=== PATIENT | male | born 1985 | race Caucasian/White ===

== ENCOUNTER 2017-06-19 15:10 | Emergency (ER) | payer OTHER ==
[~2017-06-19] VITALS: Ht 175.3 cm; Wt 90.7 kg
[~2017-06-19 15:10] MED LIST: AMOX500T2 PO; ONDA-42 SL
[2017-06-19] MEDS ORDERED: fentaNYL INJECTION 100 MCG/2 ML AMP IVP ONE (15:45)
--- NOTE | 2017-06-19 15:48 | ED Fall/Injury ---
General Chief Complaint: Trauma-Non Activation Stated Complaint: LOWER BACK/NECK PAIN Nursing Triage Note: PT FELL APPROX 20 FT OUT OF A LOOSE BUCKET ON A TRUCK YESTERDAY WHILE AT WORK FOR [employer]. UNKNOWN LOC. REPORTS PAIN MUCH WORSE TODAY IN RIGHT LOWER BACK. ALSO C/O LEFT HIP PAIN, RIGHT HEAD PAIN, ET LOWER NECK PAIN. CCOLLAR APPLIED. 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 He was off center so he stepped to the edge of the bucket which caused the bucket to fall from the left landing on the ground. This did not land on him however. Distance of the fall was 20 feet. He landed on his back and rolled into a brick wall on his right side. He did not lose consciousness and had minimal pain yesterday. However, today the pain is much worse to the right side of the thoracic spine, right side of the low back and minor right abdominal pain. Location Injury Occurred: [facility] Occurred: just prior to arrival Severity: moderate Injuries/Pain Location: back Associated Symptoms (Fall): Abdominal Pain, No Headache, Neck Pain Allergies and Home Medications Allergies Coded Allergies: No Known Drug Allergies (Unverified , 02/05/15) Home Medications Amoxicillin Trihydrate 500 Mg Tablet, 500 MG PO TID, (Reported) Ondansetron Hcl 4 Mg Tab, 4 MG SL Q4H, #5 FOR NAUSEA AND VOMITING Prescribed by: ELVA BENITES on 02/05/15 9296 Constitutional: see HPI Eyes: No Symptoms Reported Ears, Nose, Mouth, Throat: no symptoms reported Respiratory: no symptoms reported Cardiovascular: no symptoms reported Genitourinary: no symptoms reported Musculoskeletal: no symptoms reported Skin: no symptoms reported Psychiatric/Neurological: No Symptoms Reported Past Vplrxwc-Byemcz-Uahhyz Hx Patient Social History Recent Foreign Travel: No Contact w/Someone Who Travel: No Recent Infectious Disease Expo: No Immunizations Up To Date Tetanus Booster (TDap): Unknown Surgeries HX Surgeries: No Respiratory Hx Respiratory Disorders: No Cardiovascular Hx Cardiac Disorders: No Neurological Hx Neurological Disorders: No Reproductive System Hx Reproductive Disorders: No Sexually Transmitted Disease: No Genitourinary Hx Genitourinary Disorders: No Gastrointestinal Hx Gastrointestinal Disorders: No Musculoskeletal Hx Musculoskeletal Disorders: No Endocrine Hx Endocrine Disorders: No HEENT HX ENT Disorders: No Cancer Hx Cancer: No Psychosocial Hx Psychiatric Problems: No Integumentary HX Skin/Integumentary Disorder: No Blood Transfusions Hx Blood Disorders: No Physical Exam Vital Signs Vital Sign - Last 12Hours 06/19/17 15:20 Temp 98.2 Pulse 73 Resp 16 B/P (MAP) 141/90 Capillary Refill : Less Than 3 Seconds General Appearance: WD/WN, no apparent distress HEENT: PERRL/EOMI, normal ENT inspection Neck: non-tender, full range of motion Respiratory: no respiratory distress, no accessory muscle use Gastrointestinal: normal bowel sounds, soft, tenderness (he states that palpation of the abdomen causes the pain to be worse in his back) Extremities: normal range of motion, non-tender Neurologic/Psychiatric: alert, normal mood/affect, oriented x 3 Skin: normal color, warm/dry, other (no abrasion and ecchymosis or erythema to any part of the chest abdomen pelvis or torso, this does include his back as well.) Isidro Coma Score Best Eye Response: (4) Open Spontaneously Best Verbal Response: (5) Oriented Best Motor Response: (6) Obeys Commands Isidro Total: 15 Progress/Results/Core Measures Results/Orders Lab Results Laboratory Tests Test 06/19/17 15:55 Range/Units White Blood Count 4.7 4.3-11.0 10^3/uL Red Blood Count 4.81 4.35-5.85 10^6/uL Hemoglobin 14.7 13.3-17.7 G/DL Hematocrit 44 40-54 % Mean Corpuscular Volume 92 80-99 FL Mean Corpuscular Hemoglobin 31 25-34 PG Mean Corpuscular Hemoglobin Concent 33 32-36 G/DL Red Cell Distribution Width 13.1 10.0-14.5 % Platelet Count 199 130-400 10^3/uL Mean Platelet Volume 10.2 7.4-10.4 FL Sodium Level 142 135-145 MMOL/L Potassium Level 3.9 3.6-5.0 MMOL/L Chloride Level 107 98-107 MMOL/L Carbon Dioxide Level 28 21-32 MMOL/L Anion Gap 7 5-14 MMOL/L Blood Urea Nitrogen 15 7-18 MG/DL Creatinine 0.95 0.60-1.30 MG/DL Estimat Glomerular Filtration Rate > 60 BUN/Creatinine Ratio 16 Glucose Level 91 70-105 MG/DL Calcium Level 9.2 8.5-10.1 MG/DL Total Bilirubin 0.4 0.1-1.0 MG/DL Aspartate Amino Transf (AST/SGOT) 22 5-34 U/L Alanine Aminotransferase (ALT/SGPT) 31 0-55 U/L Alkaline Phosphatase 64 40-136 U/L Total Protein 7.1 6.4-8.2 GM/DL Albumin 4.2 3.2-4.5 GM/DL My Orders Orders - MARIA LUISA TURNER APRN Saline Lock/Iv-Start (06/19/17 15:34) Cbc No Diff (06/19/17 15:34) Comprehensive Metabolic Panel (06/19/17 15:34) Ct Head/Cervical Spine Wo (06/19/17 15:34) Pelvis (06/19/17 15:34) Ct Thoracic Spine Wo (06/19/17 15:43) Ct Abdomen/Pelvis W (06/19/17 15:43) Saline Lock/Iv-Start (06/19/17 15:43) Fentanyl Injection (Sublimaze Injection (06/19/17 15:45) Iohexol Injection (Omnipaque 350 Mg/Ml 1 (06/19/17 16:00) Ns (Ivpb) (Sodium Chloride 0.9% Ivpb Bag (06/19/17 16:00) Chest 1 View, Ap/Pa Only (06/19/17 15:43) Medications Given in ED Current Medications Medications Dose Ordered Sig/Matilda Route Start Time Stop Time Status Last Admin Dose Admin Fentanyl Citrate 50 mcg ONCE ONCE IVP 06/19/17 15:45 06/19/17 15:46 DC 06/19/17 15:56 50 MCG Vital Signs/I&O Vital Sign - Last 12Hours 06/19/17 15:20 Temp 98.2 Pulse 73 Resp 16 B/P (MAP) 141/90 Blood Pressure Mean: 107 Departure Communication Progress Notes CT scans reviewed. Cervical collar removed at 1644. We will discharge patient to home. Impression Impression: Primary Impression: Fall Additional Impression: Muscle strain Disposition: HOME, SELF-CARE Condition: Stable Departure-Patient Inst. Decision time for Depature: 16:44 Referrals: NO,LOCAL PHYSICIAN (PCP/Family) Primary Care Physician Patient Instructions: Cervical Muscle Strain (DC), Low Back Pain (DC), Muscle Strain Add. Discharge Instructions: 1. Medication as directed 2. Return to ER for any concerns 3. See your doctor next week All discharge instructions reviewed with patient and/or family. Voiced understanding. Scripts Cyclobenzaprine HCl (Cyclobenzaprine HCl) 5 Mg Tablet 5 MG PO TID, #20 TAB Prov: MARIA LUISA TURNER APRN 06/19/17 Naproxen (Naprosyn) 500 Mg Tablet 500 MG PO BID Y for PAIN-MODERATE, #30 TAB Prov: MARIA LUISA TURNER APRN 06/19/17 MARIA LUISA TURNER APRN Jun 19, 2017 15:48
[2017-06-19] MEDS ORDERED: NS 100 ML (IVPB) BAG IV ONE (16:00)
[2017-06-19] MEDS ORDERED: IOHEXOL 350 MG/ML 100 ML (OMNIPAQUE 350) VIAL IV ONE (16:00)
[2017-06-19 16:04] LABS: MEAN PLATELET VOLUME 10.2 FL (7.4-10.4); RED BLOOD COUNT 4.81 10^6/uL (4.35-5.85); RED CELL DISTRIBUTION WIDTH 13.1 % (10.0-14.5); WHITE BLOOD COUNT 4.7 10^3/uL (4.3-11.0)
[2017-06-19 16:29] LABS: ALANINE AMINOTRANSFERASE 31 U/L (0-55); ALBUMIN 4.2 GM/DL (3.2-4.5); ANION GAP 7 MMOL/L (5-14); ASPARTATE AMINO TRANSFERASE 22 U/L (5-34); BILIRUBIN,TOTAL 0.4 MG/DL (0.1-1.0); BLOOD UREA NITROGEN 15 MG/DL (7-18); BUN/CREATININE RATIO 16; CALCIUM 9.2 MG/DL (8.5-10.1); CARBON DIOXIDE 28 MMOL/L (21-32); CHLORIDE 107 MMOL/L (98-107); CREATININE SERUM 0.95 MG/DL (0.60-1.30); GFR ESTIMATED > 60; GLUCOSE 91 MG/DL (70-105); POTASSIUM 3.9 MMOL/L (3.6-5.0); SODIUM 142 MMOL/L (135-145); TOTAL PROTEIN 7.1 GM/DL (6.4-8.2)
--- NOTE | 2017-06-19 16:32 | Diagnostic Imaging Report ---
PROCEDURE: CT head and CT cervical spine without contrast. TECHNIQUE: Multiple contiguous axial images were obtained through the brain and cervical spine without the use of intravenous contrast. Sagittal and coronal reformations through the cervical spine were then performed. INDICATION: Fall. CT HEAD WITHOUT CONTRAST: The ventricles and cortical gyral pattern are normal. There is no intracranial hemorrhage. There is no mass effect. No extra-axial fluid collection. Basal cisterns are clear. There are no masses. Bone windows show the mastoid air cells and paranasal sinuses to be clear. No evidence of calvarial fracture. IMPRESSION: Normal CT scan of the head without contrast. CT CERVICAL SPINE: Good alignment of the vertebral bodies. Body heights and disc spaces are well maintained. Facets are in good alignment. Atlantoaxial joint appears normal. There are no fractures. Surrounding soft tissues are normal. IMPRESSION: Normal CT cervical spine. Dictated by: Dictated on workstation # [id number]
--- NOTE | 2017-06-19 16:33 | Diagnostic Imaging Report ---
PROCEDURE: CT thoracic spine without contrast. TECHNIQUE: Multiple axial computerized tomography images were obtained from the base of the thoracic spine to the vertex without intravenous contrast. INDICATION: Fall. Back pain. FINDINGS: Sagittal and coronal reformatted images of the thoracic spine show good alignment of the vertebral bodies. Body heights are well maintained with no compression fractures. Facets are in good alignment. No fractures are demonstrated. IMPRESSION: Normal CT scan of the thoracic spine. Dictated by: Dictated on workstation # [id number]
--- NOTE | 2017-06-19 16:40 | Diagnostic Imaging Report ---
PROCEDURE: CT abdomen and pelvis with contrast. TECHNIQUE: Multiple contiguous axial images were obtained through the abdomen and pelvis after administration of intravenous contrast. INDICATION: Fall, injury. FINDINGS: The lung bases are clear. The liver appears normal. Gallbladder and bile ducts are normal. The pancreas is normal. The spleen is normal. The adrenal glands are normal. The kidneys appear normal. There is normal enhancement of the abdominal organs and vessels. No evidence of visceral laceration. Bowel gas pattern is normal throughout. There is no free air or free fluid. Sagittal reconstructed bone images show good alignment of the vertebral bodies. Body heights and disc spaces are well maintained. Facets are in good alignment. No evidence of pars defects. There are no fractures demonstrated. IMPRESSION: 1. Normal CT abdomen and pelvis. Dictated by: Dictated on workstation # [id number]
--- NOTE | 2017-06-19 16:41 | Diagnostic Imaging Report ---
INDICATION: Fall, injury. FINDINGS: Portable chest shows the lungs to be well-aerated. There are no contusions. No pneumothorax or pleural effusions. The heart is not enlarged. No bony fracture is demonstrated. IMPRESSION: Normal portable chest. Dictated by: Dictated on workstation # [id number]
--- NOTE | 2017-06-19 16:41 | Diagnostic Imaging Report ---
INDICATION: Fall, injury. FINDINGS: AP pelvis. The SI joints are symmetrical and appear normal. Pubic symphysis is in good alignment. The hips show normal articulation bilaterally. There are no fractures. IMPRESSION: Negative AP pelvis. Dictated by: Dictated on workstation # [id number]
[2017-06-19] MEDS ORDERED: NAPR500T PO (16:46)
[2017-06-19] MEDS ORDERED: CYCL5TAB PO (16:46)
[2017-06-19 17:10] VITALS: BP 127/87
== END 2017-06-19 17:10 | disposition home or self-care (01) ==
LOC: EDUNIT# 15:10 → ER 15:12
DX: S39.012A Strain of muscle, fascia and tendon of lower back, initial encounter (principal); V68.7XXA Person on outside of heavy transport vehicle injured in noncollision transport accident in traffic accident, initial encounter
CPT/HCPCS: 36415; 70450; 71010; 72125; 72128; 72170; 74177; 80053; 85027; 96374